=== PATIENT | female | born 1995 | race Caucasian/White ===

== ENCOUNTER 2018-06-27 20:19 | Emergency (ER) | payer OTHER, SELFPAY ==
[2018-06-27 20:20] VITALS: BP 144/99; PULSE 72; RESP 20; TEMP 36.3; O2SAT 96; BMI 34.2
--- NOTE | 2018-06-27 20:42 | CT_ITS ---
STUDY: CT ABDOMEN AND PELVIS WITHOUT CONTRAST REASON FOR EXAM: Female, 22 years old. Pain left side of abdomen RADIATION DOSAGE (If Supplied By Facility): CTDIvol = ( 11.03 ) mGy, DLP = ( 617.26 ) mGycm TECHNIQUE: Transaxial images were obtained from the dome of the diaphragm to the symphysis pubis without oral contrast, and without intravenous contrast. Sagittal and coronal images were reconstructed. Individualized dose optimization techniques were used for this CT. COMPARISON: None. FINDINGS: The visualized lung bases are unremarkable. The visualized portions of the heart are within normal limits. Normal liver. Normal gallbladder and extrahepatic biliary system. Normal spleen. Normal pancreas. Normal bilateral adrenal glands. Normal right kidney. Mild left hydronephrosis due to a 3 mm stone at the left ureteropelvic junction. Normal visualized stomach. Normal small intestine. Normal colon. There is non-visualization of the appendix. Normal abdominal aorta. Normal inferior vena cava. Normal retroperitoneum. Normal urinary bladder. Normal abdominal wall. Normal osseous structures. CT/Abdomen/Pelvis without Cont IMPRESSION: Mild left hydronephrosis due to a 3 mm stone at the ureteropelvic junction. Electronically Signed: Donis Samano MD at 23:21 EDT , Service support ,
[2018-06-27] MEDS: 0.9% Normal Saline 1,000 ML 1000 ML IV (21:11)
[2018-06-27 21:24] LABS: Absolute Lymphocyte Count 1.91 X10^3/ul (0.83-4.51); Absolute Neutrophil Count 5.7 X10^3/uL (2.0-7.7); Basophil# 0.01 X10^3/uL; Basophil% 0.1 % (0-1); Eosinophil# 0.03 X10^3/uL; Eosinophils% 0.4 % (0-5); Hematocrit 42.1 % (37-47); Lymphocyte # 1.91 X10^3/ul (4.0); Mean Corp Hgb Conc 33.3 g/gl (32-36); Mean Corpuscular Hgb 27.7 pg (27.0-32.0); Mean Corpuscular Volume 83.2 fL (81-99); Mean Platelet Vol. 9.5 fl (6.2-12.0); Monocyte# 0.67 X10^3/uL; Monocyte% 8.1 % (0-10); Neutrophil # 5.67 X10^3/uL (2.7-7.7); Neutrophil % 68.4 % (47-70); Platelet Count 314 K/mm3 (150-450); RBC Distribution Width CV 12.7 % (11.6-14.6); Red Blood Count 5.06 M/mm3 (4.2-5.4); White Blood Count 8.3 K/mm3 (4.4-11.0)
[2018-06-27 21:30] LABS: POSITIVE COUNT NO; POSITIVE DIFFERENTIAL NO; POSITIVE MORPHOLOGY NO
[2018-06-27 21:40] LABS: ALB/GLOB Ratio 1.1 RATIO (0.9-2.4); AST(SGOT) 23 U/L (15-37); Alanine Aminotransfer ALT/SGPT 38 U/L (13-56); Albumin, Serum 4.6 g/dL (3.2-5.0); Alkaline Phosphatase 50 U/L (45-117); Anion Gap 6 (5-15); BUN 13 mg/dL (7-18); BUN/Creat Ratio 15.3 RATIO (10-20); Calcium,Total 9.4 mg/dL (8.5-10.1); Chloride 106 mmol/L (98-107); Creatinine, Serum 0.85 mg/dL (0.55-1.02); EST Glomerular Filtration Rate 88 mL/min (>60); Est Glom Filt Rate - Afr Amer 106 mL/min (>60); Estimated Creatinine Clearance 85.15 ml/min; Globulin 4.2 g/dL (2.2-4.2); Glucose 79 mg/dL (74-106); Potassium 2.9 mmol/L (3.5-5.1); Protein, Total 8.8 g/dL (6.4-8.2); Sodium Level 138 mmol/L (136-145)
--- NOTE | 2018-06-27 21:45 | ED.VISSUMM ---
- ER Visit Summary Date of Service: 06/27/18 Chief Complaint: [Abdominal pain] History of Present Illness: The patient is a 22 F [presents with abdominal pain that started a week ago and is been off and on. Patient describes the pain is left lower abdomen. Patient initially thought she may just be having a flareup of her Crohn's. Patient denies any blood in her stool or black tarry stools however. She did have an episode of watery stool this morning. Patient last menstrual period was June 08. She has not had a fever. She denies urinary symptoms. 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 Cranial nerves II through XII grossly intact. TMs clear. Mucous membranes moist. No adenopathy. Cardiovascular-regular rate and rhythm without murmur or ectopy Lungs-clear to auscultation, chest wall stable without crepitus or subcu emphysema Abdomen-normoactive bowel sounds, soft. Patient has diffuse tenderness to palpation and also seems to localize to the left lower quadrant. There is no rebound, rigidity, or perineal signs. Extremities-intact ?4, normal range of motion, normal pulses, atraumatic] Test Results: [CBC with differential obtained was normal. Chemistries were unremarkable. LFTs were normal. HCG is pending and CT scan of the abdomen pelvis pending] Emergency Department Course and Treatment: [Patient refused pain medication at this time.] Treatment Plan: [Patient care will be turned over to evening physician awaiting CT scan results and final disposition] Disposition: [Pending] Impression: [Abdominal pain] This note was generated with [employer] dictation software. It may contain incorrect words, spelling, and punctuation that were not noted in review of the chart prior to signing ED Disposition - Plan for ED Patient: Referrals: Zuri Buck MD [Primary Care Provider] -
[2018-06-27 21:49] LABS: Bacteria 0 SEEN /hpf (None Seen); Mucous, Urine 0 SEEN /hpf (<or=2+)
[2018-06-27 21:51] LABS: Color, Urine Yellow (Yellow); Glucose, Dipstick Normal (Normal); Leukocyte Esterase-Dipstick 25 /ul (Negative); Nitrite-Dipstick Negative (Negative); Occult Blood-Urine 250 /ul (Negative); Protein-Dipstick 30 mg/dl (Negative); Urine Bilirubin Dipstick Negative (Negative); Urine Clarity Cloudy (Clear); Urine Urobilinogen Normal (Normal)
[2018-06-27 21:54] LABS: Ketone-Dipstick 150 mg/dl (Negative)
--- NOTE | 2018-06-27 21:58 | ED.RN ---
DR JAMES AWARE OF URINE KETONE OF 150.
[2018-06-27 22:10] LABS: Red Blood Cells-Urine 25-50 SEEN /hpf (0-5)
[2018-06-27 22:11] LABS: Squamous Epithelial Cells - UA 0-5 SEEN /hpf (5-10); White Blood Cells 0-5 SEEN /hpf (0-5)
[2018-06-27 22:14] LABS: Pregnancy, Serum, hCG Quali. NEGATIVE Negative (0-9 Nonpreg)
[2018-06-27 22:50] VITALS: BP 123/87; PULSE 77; RESP 15; O2SAT 97
--- NOTE | 2018-06-27 23:31 | DCINST.ED_ITS ---
ED Disposition - Plan for ED Patient: Disposition: Home or Assisted Living Instructions: ED Stone Renal W Colic Prescriptions: Ketorolac [Toradol] 10 mg PO Q4H #10 tab Referrals: Zuri Buck MD [Primary Care Provider] - 3-5 Days if not improving Additional Instructions: Your pain is due to a left sided kidney stone about 3 mm that you should be able to pass. Strain your urine to find the stone. Toradol as needed and [place] for pain. Plenty of fluids. Return if feeling a lot worse or follow-up with your primary care physician if not improving. He should pass a kidney stone in the next 48 hours.
[2018-06-27 23:32] VITALS: PULSE 72; RESP 16; O2SAT 97
[2018-06-27] MEDS: HYDROcodone Bitartrate/Apap 5/325 Tablet PO (23:42)
== END 2018-06-27 23:46 | disposition home or self-care (01) ==
PROVIDERS: Emergency Provider Emergency Medicine; Family Provider Family Medicine; PCP Family Medicine
DX: N20.1 Calculus of ureter (principal); E87.6 Hypokalemia; K50.90 Crohn's disease, unspecified, without complications; J45.909 Unspecified asthma, uncomplicated; Z79.899 Other long term (current) drug therapy; Z86.19 Personal history of other infectious and parasitic diseases
CPT/HCPCS: 74176; 80053; 81001; 83605; 84703; 85025; 96360; 96361; 99283; J7030